=== PATIENT | female | born 1955 | race Caucasian/White ===

== ENCOUNTER 2023-02-08 16:41 | Emergency (ER) | payer OTHER ==
--- NOTE | 2023-02-08 16:50 | ED Physician Documentation ---
PD HPI HEENT - Stated complaint Stated Complaint: LIP LAC - Chief complaint Chief Complaint: Laceration - History obtained from History obtained from: Patient - History of Present Illness Timing - onset: Today Timing - details: Abrupt onset, Still present (her dog scratched at her face and caused laceration to upper lip and abrasion cheek left. Some injury lower inner lip as was pushed against her teeth. No dental injury.) Similar symptoms before: Has not had sx before Review of Systems Eyes: denies: Loss of vision, Decreased vision Throat: reports: Oral lesions / sores. denies: Dental pain / toothache, Sore throat PD PAST MEDICAL HISTORY - Allergies Allergies/Adverse Reactions: Allergies Allergy/AdvReac Type Severity Reaction Status Date / Time No Known Drug Allergies Allergy Verified 02/08/23 16:45 PD ED PE NORMAL - Vitals Vital signs reviewed: Yes - General General: Alert and oriented X 3, No acute distress, Well developed/nourished - HEENT HEENT: PERRL, EOMI, Other (left cheek with abrasions. Inner lower lip with some mucoasal abrasions as well. The main injury upper lip middle going to philtrum. crossed mervat border on lower end. ) Results - Vitals Vitals: Vital Signs - 24 hr 02/08/23 16:45 Temperature 36.5 C Heart Rate 76 Respiratory 16 Rate Blood Pressure 150/90 H O2 Saturation 98 Oxygen O2 Source Room air Procedures - Laceration (location) upp Length in cm: 1.5 Wound type: Linear, Into subcut fat Neurovascular status: Sensory intact, Motor intact Anesthesia: LET Wound preparation: Irrigated copiously NS, Wound explored, To the base Skin layer closure: Nylon, Running, Size #-0 - enter number (6), Sutures - enter # (10) PD Medical Decision Making - ED course Complexity details: considered differential (scratched with dog nail and has lac to upper mid lip, drossing mervat border. Abrasions inner lower lip and left cheek. ), d/w patient Departure - Departure Disposition: 01 Home, Self Care Clinical Impression: Facial laceration Qualifiers: Encounter type: initial encounter Qualified Code(s): S01.81XA - Laceration without foreign body of other part of head, initial encounter Condition: Stable Record reviewed to determine appropriate education?: Yes Instructions: ED Laceration Facial Sutr Tape Comments: It is okay to wash and shower. Clean off the wound twice a day with soap and water, or peroxide and water. Apply some antibiotic ointment to it to keep it moist. Also to watch for signs of infection such as purulence, redness or increasing pain. Return to your primary care or the ER at the specified time for suture removal.. Suture removal proximately 7 to 8 days. Tylenol if needed for pains. The scratch on the bridge of the nose should heal up okay. It does not need sutures. I would incorporate of that as well as the cheek abrasion with the same treatment of cleansing and ointment. Discharge Date/Time: 02/08/23 17:53
[2023-02-08 16:51] VITALS: BP 150/90
[2023-02-08] MEDS ORDERED: LIDOCAINE-EPINEPH-TETRACAINE 3 ML SYRINGE TOP STA (16:57)
[2023-02-08] MEDS ORDERED: BACITRACIN ZINC OINT 1 PACKET TOP STA (17:43)
== END 2023-02-08 17:53 | disposition home or self-care (01) ==
LOC: ED 16:41
DX: S01.511A Laceration without foreign body of lip, initial encounter (principal); W54.1XXA Struck by dog, initial encounter
CPT/HCPCS: 12011; 99282